=== PATIENT | female | born 1945 | race Caucasian/White ===

== ENCOUNTER 2018-11-02 10:28 | Emergency (ER) | payer MEDICARE, BC ==
[~2018-11-02] VITALS: Ht 170.2 cm; Wt 90.0 kg
[2018-11-02 12:27] VITALS: BP 141/70
== END 2018-11-02 12:29 | disposition home or self-care (01) ==
LOC: ED 12:23
DX: R20.2 Paresthesia of skin (principal); I10 Essential (primary) hypertension; F17.200 Nicotine dependence, unspecified, uncomplicated
CPT/HCPCS: 36415; 70450; 80048; 82040; 85025; 93005; 99284